=== PATIENT | female | born 1950 | race American Indian/Alaskan Native ===

== ENCOUNTER 2019-05-11 16:02 | Emergency (ER) | payer OTHER, MEDICARE ==
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
[2019-05-11 21:47] VITALS: BP 145/65
== END 2019-05-11 21:46 | disposition home or self-care (01) ==
LOC: ED 16:02
DX: S29.012A Strain of muscle and tendon of back wall of thorax, initial encounter (principal); Z88.4 Allergy status to anesthetic agent; V89.2XXA Person injured in unspecified motor-vehicle accident, traffic, initial encounter; Y93.89 Activity, other specified; Y92.410 Unspecified street and highway as the place of occurrence of the external cause; Y99.8 Other external cause status
CPT/HCPCS: 72040; 72070